=== PATIENT | female | born 1950 | race Caucasian/White ===

== ENCOUNTER 2017-10-07 14:33 | Emergency (ER) | payer OTHER, SELFPAY | END 2017-10-07 15:48 | disposition home or self-care (01) | LOC: ERS 14:33 | DX: J20.9 Acute bronchitis, unspecified (principal); I10 Essential (primary) hypertension; E11.9 Type 2 diabetes mellitus without complications | CPT/HCPCS: 87081; 87430; 99283 ==

== ENCOUNTER 2020-02-12 13:03 | Emergency (ER) | payer MEDICARE, SELFPAY ==
--- NOTE | 2020-02-12 13:34 | RAD ---
XR Chest 1 View Portable HISTORY: Dyspnea COMPARISON: 02/25/2011 FINDINGS: The heart size is normal. The lungs are well expanded without focal areas of consolidation, pneumothorax or pleural effusions. IMPRESSION: No radiographic evidence of acute cardiopulmonary process.
[2020-02-12 14:08] LABS: Bilirubin Negative (Negative); Blood, Urine Negative (Negative); Clarity Clear (Clear); Glucose, Urine (Dipstick) Greater than 1000 mg/dL (Negative); Ketone, Urine Trace mg/dL (Negative); Leukocyte Negative Leu/uL (Negative); Nitrite Negative (Negative); Protein, Urine (Dipstick) Negative (Neg-Trace); Specific Gravity, Urine 1.013 (1.002-1.036); Urobilinogen Normal mg/dL (Less than 2); pH, Urine 5.5 (5.0-9.0)
[2020-02-12 14:17] LABS: #Eosinphils 0.1 thou/uL (0.0-0.7); #Lymphocytes 2.2 thou/uL (1.20-3.40); #Monocytes 0.5 thou/uL (0.11-0.59); #Neutrophils 8.2 thou/uL (1.40-6.50); %Basophils 0.4 % (0.0-1.0); %Eosinophils 1.1 % (0.0-10.0); %Lymphocytes 19.8 % (21.0-51.0); %Monocytes 4.6 % (0.0-10.0); Mean Corpuscular HGB CONC 32.4 g/dL (32.0-36.0); Mean Corpuscular Hemoglobin 28.9 pg (27.0-31.0); Mean Corpuscular Volume 89.3 fL (78.0-98.0); Mean Platelet Volume 7.9 fL (7.4-10.4); Platelet Count 306 thou/uL (130-400); RBC Distribution Width 11.1 % (11.5-14.5); Red Blood Cell (RBC) Count 4.47 mill/uL (4.20-5.40)
[2020-02-12 14:30] LABS: Base Excess-Venous -0.1 mmol/L (-2.0 to 3.0); Bicarbonate (HCO3v) 26.3 mmol/L (22.0-28.0); CO2 Tension (PvCO2) 48.8 mmHg (40.0-50.0); Calcium, Ionized 1.15 mmol/L (See Comments:); Chloride 103 mmol/L (98-107); Hemoglobin - Calc 13.1 g/dL (12.0-16.0); Potassium 3.9 mmol/L (3.5-5.1); Sodium 143 mmol/L (138-145); T. Carbon Dioxide 27.8 mmol/L (22.0-28.0); vO2 Saturation-calc 68.9 % (60.0-85.0)
[2020-02-12 14:36] LABS: ALT (SGPT) 14 U/L (8-55); AST (SGOT) 10 U/L (5-34); Albumin 4.2 g/dL (3.4-4.8); Alkaline Phosphatase 92 U/L (40-110); Anion Gap 12 mmol/L (10-20); BUN (Urea Nitrogen) 12 mg/dL (9.8-20.1); Bilirubin, Total 0.7 mg/dL (0.2-1.2); Calc. Creatinine Clearance 0 mL/min (70-130); Carbon Dioxide 26 mmol/L (23-31); Chloride 105 mmol/L (98-107); Estimated GFR-MDRD 62; Globulin 2.8 g/dL (2.4-3.5); Glucose 338 mg/dL (80-115); Potassium 3.9 mmol/L (3.5-5.1); Sodium 139 mmol/L (136-145)
== END 2020-02-12 16:42 | disposition home or self-care (01) ==
LOC: ERS 13:03
DX: E11.65 Type 2 diabetes mellitus with hyperglycemia (principal); I10 Essential (primary) hypertension; Z79.4 Long term (current) use of insulin
CPT/HCPCS: 36415; 36416; 71045; 80053; 81003; 82010; 82330; 82803; 84484; 85025; 93005; 96360; 96361

== ENCOUNTER 2020-08-21 17:07 | Observation (INO) | payer MEDICARE, BC ==
[2020-08-21] MEDS ORDERED: Aspirin Chewable 81 MG TAB ONE (17:36)
[2020-08-21] MEDS ORDERED: Nitroglycerin 0.4 MG TAB 1 EACH ONE (17:36)
--- NOTE | 2020-08-21 17:38 | RAD ---
CHEST ONE VIEW: 08/21/20 INDICATION: Chest pain. COMPARISON: Prior exam dated 02/12/20. FINDINGS: The lungs are clear. Heart size is normal. No pleural effusion or pneumothorax evident. No acute osse ous abnormality is evident. IMPRESSION: No acute cardiopulmonary abnormality. POS: BH
[2020-08-21 17:49] LABS: Hemoglobin 12.2 g/dL (12.0-16.0); Mean Corpuscular HGB CONC 33.2 g/dL (32.0-36.0); Mean Corpuscular Volume 90.4 fL (78.0-98.0); Mean Platelet Volume 8.1 fL (7.4-10.4); Platelet Count 292 thou/uL (130-400); RBC Distribution Width 11.5 % (11.5-14.5); Red Blood Cell (RBC) Count 4.08 mill/uL (4.20-5.40); White Blood Cell (WBC) Count 12.1 thou/uL (4.8-10.8)
[2020-08-21 18:15] LABS: Lymphocytes 55 % (21-51); MDiff Complete? YES; Monocytes 6 % (0-10); Neutrophil 39 % (42-75); Platelet Morphology Comment Appears Adequate; RBC Morphology Normal
[2020-08-21 19:00] LABS: Albumin 4.2 g/dL (3.4-4.8)
[2020-08-21 19:01] LABS: Chloride 109 mmol/L (98-107); Potassium 3.5 mmol/L (3.5-5.1); Sodium 142 mmol/L (136-145)
[2020-08-21 19:02] LABS: Calcium 9.3 mg/dL (7.8-10.44)
[2020-08-21 19:03] LABS: Globulin 2.9 g/dL (2.4-3.5); Glucose 65 mg/dL (80-115); Protein, Total 7.1 g/dL (5.8-8.1)
[2020-08-21 19:04] LABS: Anion Gap 17 mmol/L (10-20); Bilirubin, Total 0.4 mg/dL (0.2-1.2); Carbon Dioxide 20 mmol/L (23-31)
[2020-08-21 19:05] LABS: Alkaline Phosphatase 70 U/L (40-110)
[2020-08-21 19:06] LABS: Calc. Creatinine Clearance 0 mL/min (70-130)
[2020-08-21 19:07] LABS: BUN (Urea Nitrogen) 15 mg/dL (9.8-20.1)
[2020-08-21 19:08] LABS: ALT (SGPT) 22 U/L (8-55); AST (SGOT) 17 U/L (5-34)
[2020-08-21 21:40] LABS: Troponin I Less than 0.010 ng/mL (< 0.028)
[2020-08-21] MEDS ORDERED: Ondansetron PF 4 MG/2 ML Vial IVP PRN (22:05)
[2020-08-21] MEDS ORDERED: Acetaminophen 325 MG TAB PO PRN (22:05)
[2020-08-21] MEDS ORDERED: Nitroglycerin 0.4 MG TAB (25 Tab Bottle) SL PRN (22:05)
--- NOTE | 2020-08-21 22:09 | PDOC.FPRHP ---
- History of Present Illness Chief Complaint: chest pain History of Present Illness: Pt is a 70 yo F with PMH of insulin dependent type 2 diabetic, HTN, MS s/p cath but no stent placement who present with chief complaint of chest pain. She states this chest pain started a couple of days ago and is associated with SOB. It feels like pressure in her chest and yesterday morning started to radiate to her back between her shoulder blades. She also has a mild VILLARREAL. The CP had been coming and going about every hour, unsure how long it lasts. She states the nitro she got in the ED relieved her pain and is no longer experiencing any pain. She has a history of heart attack in 2001 and this feeling she is having is similar to what she was experiencing then. In 2001, she underwent a cath with Dr Goel who said she had 25% occlusion but no stent was placed. Patient has not followed with a um nurse since that time. She also endorses a 1 mo history of SOB worse with exertion. She cannot lay flat. She denies fever, chi lls, vision changes, N/V, diarrhea, abdominal pain, jaw pain. She endorses compliance with her meds. ED Course: 2x nitro ASA 325mg EKG SR with no ST changes CXR negative Trop normal - Allergies/Adverse Reactions Allergies Allergy/AdvReac Type Severity Reaction Status Date / Time codeine Allergy Unverified 08/21/20 22:23 hydrocodone Allergy Unverified 08/21/20 22:23 morphine Allergy Unverified 08/21/20 22:23 - History PMHx: insulin dependent type 2 diabetic, HTN, MS PSHx: hysterectomy FHx: non contributory Social: smoked for 5-6 years 09/16 and quit in 1980 denies drugs or alcohol - Review of Systems General: denies: fever/chills, weight/appetite/sleep changes Eyes: denies: vision changes Respiratory: reports: shortness of breath, exercise intolerance. denies: cough Cardiovascular: reports: chest pain, orthopnea. denies: palpitation, edema Gastrointestinal: denies: nausea, vomiting, diarrhea, constipation, abdominal pain Genitourinary: denies: dysuria Skin: reports: lesions (patient has skin cancer on right side of neck). denies: rashes Neurological: denies: syncope, seizure, weakness Psychological: denies: anxiety, depression - Vital signs BP: 155/72 HR: 76 RR: 14 Tmax: 98.1 Pox: 99% on RA Wt: 86kg - Physical Exam Constitutional: NAD, awake, alert and oriented HEENT: normocephalic and atraumatic, EOMI, no scleral icterus Neck: supple, FROM Heart: RRR, normal S1/S2, no murmurs/rubs/gallops, pulses present, no edema Lungs: CTAB, no respiratory distress, good air movement, no wheezing Abdomen: soft, non-tender, bowel sounds present Musculoskeletal: normal structure, normal tone Neurological: no focal deficit -Skin: patient with 2cm lesion on right side of neck with central scab. Looks like it has pearly rolled borders suggestive of basal cell carcinoma. Psychiatric: normal mood and affect FMR H&P: Results - Labs Result Diagrams: 08/22/20 04:03 08/22/20 04:03 Lab results: WBC 12.1 thou/uL (4.8-10.8) H 08/21/20 17:26 Hgb 12.2 g/dL (12.0-16.0) 08/21/20 17:26 Hct 36.9 % (36.0-47.0) 08/21/20 17:26 MCV 90.4 fL (78.0-98.0) 08/21/20 17:26 Plt Count 292 thou/uL (130-400) 08/21/20 17:26 Sodium 142 mmol/L (136-145) 08/21/20 18:37 Potassium 3.5 mmol/L (3.5-5.1) 08/21/20 18:37 Chloride 109 mmol/L (98-107) H 08/21/20 18:37 Carbon Dioxide 20 mmol/L (23-31) L 08/21/20 18:37 BUN 15 mg/dL (9.8-20.1) 08/21/20 18:37 Creatinine 0.72 mg/dL (0.6-1.1) 08/21/20 18:37 Glucose 65 mg/dL (80-115) L 08/21/20 18:37 Calcium 9.3 mg/dL (7.8-10.44) 08/21/20 18:37 Total Bilirubin 0.4 mg/dL (0.2-1.2) 08/21/20 18:37 AST 17 U/L (5-34) 08/21/20 18:37 ALT 22 U/L (8-55) 08/21/20 18:37 Alkaline Phosphatase 70 U/L (40-110) 08/21/20 18:37 Serum Total Protein 7.1 g/dL (5.8-8.1) 08/21/20 18:37 Albumin 4.2 g/dL (3.4-4.8) 08/21/20 18:37 - EKG Interpretation EKG: NSR, no ST changes FMR H&P: A/P - Plan Chest pain ACS rule out -patient with past history of MS and symptoms suggestive of cardiac source -previous cath showed blockage of 25% as per patient report -EKG, CXR neg -trop neg in ED, will continue to trend -risk stratification labs pending -echo, stress pending given patient's symptoms and past history -Nitro PRN -continue home Atorvastatin Type 2 DM -insulin dependent -on Humulin 70/30 at home 25U qAM and qHS, hold while patient is NPO -adjust for patient being NPO by giving NPH 12U BID for basal coverage -SSI -continue home Metformin -A1c pending HTN -aware, on home Lisinopril -resume Dispo: admit to tele obs pending further cardiac workup Diet: NPO pending cardiac workup DVT ppx: lovenox Code: FULL PCP: Moises Attending: Rush FMR H&P: Upper Level - Plan Date/Time: 08/21/202208 IPramod DO, have evaluated this patient and agree with findings/plan as outlined by international trade teacher resident. Pertinent changes/additions are listed here. This is a 70 yo female with a PMH of HTN, HLD, CAD, IDDM2 who presents to the ER with a cc of chest pain. She state the pain started yesterday morning and has been ongoing. She states the pain is midaxillary on the left with radiation to her back between her shoulder blades. She describes the pain as a heaviness that reminds her of her last MS in 2002. She reports some SOB but denies nausea, vomiting, cough, diaphoresis, pain with deep breaths, or abdominal pain. She reports nothing at home made the pain better or worse, but she is currently pain free following the nitro. She admits that she does not see the doctor often but recently saw Dr. De Leon at [facility]. She does report a skin cancer on her right neck that was biopsied in September and she has been waiting to see a plastic surgeon to have it removed. Last A1c was this month and was 8.2. Objective: Vitals: 155/72, HR 76, RR 14, Temp 98.1, SpO2 99% RA, Wt 76kg. NAD, MMM, no JVD, heart was RRR with no murmurs, lungs CTAB, no reproducible pain, no abdominal pain, BS+, no swelling, pulses 2+ throughout. A/P ACS r/o Will trend troponins, first is negative. EKG is neg for acute MS, CXR WNL, Stress test in the AM barring no troponin elevation. CAD: continue home meds, IDDM2: Pt takes 70/30, will adjust for NPO after midnight. Further diabetic protocols per orders. See international trade teacher note for further information and management of chronic diseases. Code: Full Prophylaxis: none Family: None at bedside Fluids: SL Diet: NPO at midnight Disposition: DC in 1-2 days PCP: Dr. De Leon Addendum - Attending - Attending Attestation Date/Time: 08/22/20 1013 I personally evaluated the patient and discussed the management with Dr. Stewart and Susan on 08/21. I agree with the History, Examination, Assessment and Plan documented above with any addition or exceptions noted below. Patient seems to be describing symptoms more c/w with GERD. Will begin with a stress test tomorrow in light of age and atypical nature.
[2020-08-21 22:25] LABS: Hemoglobin A1c 7.6 % (4.0-6.0)
[2020-08-21] MEDS ORDERED: Dextrose 5% in Water 1,000 ML IV PRN (23:39)
[2020-08-21] MEDS ORDERED: Dextrose 50% Abboject 50 ML SYRINGE SLOW IVP PRN (23:39)
[2020-08-21] MEDS ORDERED: HumaLOG 300 UNITS/3 ML VIAL SC PRN ×2 (23:39)
[2020-08-21] MEDS ORDERED: Lactated Ringer's 1,000 ML IV SCH (23:45)
[2020-08-22 01:20] LABS: Troponin I Less than 0.010 ng/mL (< 0.028)
[2020-08-22 04:17] LABS: #Basophils 0.1 thou/uL (0.0-0.2); #Eosinphils 0.3 thou/uL (0.0-0.7); #Lymphocytes 3.8 thou/uL (1.20-3.40); #Monocytes 0.6 thou/uL (0.11-0.59); #Neutrophils 3.5 thou/uL (1.40-6.50); %Basophils 0.6 % (0.0-1.0); %Eosinophils 3.8 % (0.0-10.0); %Neutrophils 42.5 % (42.0-75.0); Hemoglobin 12.1 g/dL (12.0-16.0); Mean Corpuscular HGB CONC 32.4 g/dL (32.0-36.0); Mean Corpuscular Hemoglobin 29.2 pg (27.0-31.0); Mean Corpuscular Volume 90.2 fL (78.0-98.0); Mean Platelet Volume 7.9 fL (7.4-10.4); Platelet Count 275 thou/uL (130-400); RBC Distribution Width 11.5 % (11.5-14.5); Red Blood Cell (RBC) Count 4.14 mill/uL (4.20-5.40); White Blood Cell (WBC) Count 8.3 thou/uL (4.8-10.8)
[2020-08-22 04:45] LABS: ALT (SGPT) 19 U/L (8-55); AST (SGOT) 17 U/L (5-34); Alkaline Phosphatase 68 U/L (40-110); BUN (Urea Nitrogen) 11 mg/dL (9.8-20.1); Bilirubin, Total 0.8 mg/dL (0.2-1.2); Calc. Creatinine Clearance 0 mL/min (70-130); Calcium 9.2 mg/dL (7.8-10.44); Carbon Dioxide 25 mmol/L (23-31); Cardiac Risk 2.8 (Less than 4.5); Cholesterol 128 mg/dl (< 200 Desired); Globulin 2.9 g/dL (2.4-3.5); Glucose 86 mg/dL (80-115); HDL Cholesterol 45 mg/dL (>60 Neg Risk); LDL Cholesterol, Calculated 57 mg/dL; Protein, Total 6.9 g/dL (5.8-8.1); Triglycerides 132 mg/dL (Less than 150)
[2020-08-22 04:52] LABS: Anion Gap 16 mmol/L (10-20); Chloride 109 mmol/L (98-107); Potassium 3.6 mmol/L (3.5-5.1); Sodium 144 mmol/L (136-145)
--- NOTE | 2020-08-22 06:36 | PDOC.FM ---
- Subjective Subjective: Reports similar CP when walking to the bathroom. Pain was centered in the middle of her chest and radiated to her shoulder blades. The pain was relieved with nitro. She is not currently having chest pain. She continues to have VILLARREAL. Denies N/V, abdominal pain, SOB. - Objective MAR Reviewed: Yes Result Diagrams: 08/22/20 04:03 08/22/20 04:03 Phys Exam - Physical Examination Constitutional: NAD HEENT: moist MMs Neck: supple, full ROM Respiratory: no wheezing, clear to auscultation bilateral Cardiovascular: RRR Gastrointestinal: soft, non-tender, positive bowel sounds Musculoskeletal: no edema Neurological: non-focal Psychiatric: normal affect, A&O x 3 Skin: no rash Dx/Plan - Plan Plan: TypicalChest Pain -ACS rule out with past history of MA and symptoms suggestive of cardiac source -previous cath: per patient, blockage of 25%, no stent placed -EKG, CXR neg -trop: <0.010 x3 -LDL: 57, HDL: 45, Tri, Chol: 128 -echo, stress pending -Nitro PRN, continue home Atorvastatin Type 2 DM -insulin dependent, on Humulin 70/30 at home 25U qAM and qHS, hold while patient is NPO -while NPO: will give NPH 12U BID for basal coverage -SSI -continue home Metformin -A1c: 7.6 HTN -aware, on home Lisinopril -resume Dispo: Continue tele monitoring, Discharge pending results of stress test and echo Diet: NPO pending cardiac workup DVT ppx: lovenox Code: FULL PCP: Moises Attending: Rush Addmike - Attending - Attending Attestation Date/Time: 08/22/20 1030 I personally evaluated the patient and discussed the management with Dr. Hope. I agree with the History, Examination, Assessment and Plan documented above with any addition or exceptions noted below. Denied pain for me this AM. Await workup.
[2020-08-22 08:34] LABS: SARS-CoV-2 PCR by NAA Not Detected (NotDetected)
[2020-08-22] MEDS ORDERED: Enoxaparin Sodium 40 MG/0.4 ML SYRINGE ONE (08:52)
[2020-08-22] MEDS ORDERED: Lisinopril 10 MG TAB ONE (08:52)
[2020-08-22] MEDS ORDERED: NPH, Human Insulin Isophane 300 UNIT/3 ML VIAL SC SCH (09:00)
[2020-08-22] MEDS: Atorvastatin Calcium 20 MG TAB PO SCH ×2 (09:00→12:49)
[2020-08-22] MEDS: Lisinopril 5 MG TAB PO SCH ×2 (09:00→12:49)
[2020-08-22] MEDS: metFORMIN 500 MG TAB PO SCH ×2 (09:00→12:49)
[2020-08-22] MEDS: Enoxaparin Sodium 40 MG/0.4 ML SYRINGE SC SCH ×2 (09:00→12:49)
[2020-08-22] MEDS ORDERED: ADENOSINE 60 MG/20 ML VIAL ONE (10:00)
[2020-08-22 12:50] VITALS: BP 177/95
--- NOTE | 2020-08-22 13:08 | NM ---
EXAM: CARDIAC SPECT HISTORY: Chest pain. History of myocardial infarction TECHNIQUE: A myocardial perfusion scan was performed using the single isotope 1 day protocol with moshe hnetium 99m sestamibi. [10 mCi] was injected intravenously for the rest exam followed by 30 mCi for the stress study. Pharmacologic stress with adenosine was monitored and interpreted by the nurse practitioner. FINDINGS: Homogeneous tracer distribution is seen in the myocardial segments on stress and rest image s without fixed or reversible defects. Gated SPECT LVEF: 71% Wall motion exam: Normal IMPRESSION: Normal myocardial perfusion scan
--- NOTE | 2020-08-25 22:32 | DIS ---
DATE OF ADMISSION: 08/21/2020 DATE OF DISCHARGE: 08/22/2020 RESIDENT: Ritika Hope MD ADMITTING ATTENDING: Georgi Beverly MD DISCHARGE ATTENDING: Georgi Beverly MD CONSULTS: None. REPORT/IMAGES: 1. Chest x-ray, no acute cardiopulmonary abnormality. 2. Stress test nuclear medicine, normal myocardial perfusion scan. 3. Echocardiogram, EF of 55% to 60%, E-A flow reversal noted, suggestive of diastolic dysfunction. Left atrium mildly dilated. Mitral annular calcification present. Mild mitral regurg present. Mild tricuspid regurg. 4. Typical chest pain, secondary to gastroesophageal reflux disease. SECONDARY DIAGNOSES: 1. Type 2 diabetes. 2. Hypertension. 3. History of myocardial infarction. DISCHARGE MEDICATIONS: 1. Humulin 70/30. 2. Lisinopril 5 mg p.o. daily. 3. Atorvastatin 20 mg p.o. daily. 4. Metformin 1000 mg p.o. DISCONTINUED MEDICATIONS: None. HISTORY OF PRESENT ILLNESS/HOSPITAL COURSE: The patient is a 70-year-old female with past medical history of insulin-dependent diabetes, hypertension, NC status post catheterization, but no stent placement, who presented with chief complaint of chest pain. She reported that the pain started a couple of days ago and was associated with shortness of breath. She described the pain as a pressure in her chest and said that at one point, it radiated to her back between her shoulder blades. Due to the patient's history, she was admitted for ACS rule out. Her troponins were negative x3 during her stay, and her chest pain had resolved. The patient had a normal stress test and an echo, which revealed EF of 55% to 60%. The patient was continued on her home medications including 25 units q.a.m. and at bedtime of Humulin 70/30, lisinopril, and metformin. The patient's risk stratification labs revealed LDL of 57, HDL 45, triglycerides of 132, cholesterol 128, and the patient was continued on her home atorvastatin. DISPOSITION: Stable. DISCHARGE LOCATION: Home. DIET: Heart healthy, diabetic diet. ACTIVITY: As tolerated. FOLLOWUP: Follow up with PCP in 7 days. Job ID: [id number]
== END 2020-08-22 15:19 | disposition home or self-care (01) ==
LOC: ERS 17:07 → ERHOLD 19:57
PROVIDERS: ADMIT Emergency Medicine; ATTEND Emergency Medicine
DX: K21.9 Gastro-esophageal reflux disease without esophagitis (principal); E11.9 Type 2 diabetes mellitus without complications; I10 Essential (primary) hypertension; I25.2 Old myocardial infarction; I08.1 Rheumatic disorders of both mitral and tricuspid valves; I25.10 Atherosclerotic heart disease of native coronary artery without angina pectoris; Z79.4 Long term (current) use of insulin; Z79.899 Other long term (current) drug therapy; Z88.5 Allergy status to narcotic agent; Z87.891 Personal history of nicotine dependence
CPT/HCPCS: 71045; 78452; 80053; 80061; 83036; 84484 ×3; 85025; 93005; 93017; 93306; 94760; 99285; A9500; U0003; U0005; 36415; 84443; 87635; 96372; G0378; J0153; J1650

== ENCOUNTER 2023-05-07 08:48 | Outpatient (CLI) | payer MEDICARE, OTHER | END 2023-05-07 08:49 | disposition home or self-care (01) | LOC: BICMAMMO 08:48 | PROVIDERS: ATTEND Internal Medicine Hospice and Palliative Medicine | DX: N64.89 Other specified disorders of breast (principal) | CPT/HCPCS: 76642; 77065; G0279 ==

== ENCOUNTER 2023-12-13 09:59 | Day surgery (SDC) | payer OTHER, MEDICARE ==
[2023-12-12 11:51] VITALS: BMI 31.7
[2023-12-13] MEDS ORDERED: Lidocaine 1% PF 5 ML VIAL ONE (12:58)
[2023-12-13] MEDS ORDERED: PROPOFOL 20 ML ONE ×3 (12:58→13:25)
== END 2023-12-13 14:35 | disposition home or self-care (01) ==
LOC: SDC 09:59
PROVIDERS: ATTEND Internal Medicine Gastroenterology
DX: Z12.11 Encounter for screening for malignant neoplasm of colon (principal); R19.5 Other fecal abnormalities; D12.2 Benign neoplasm of ascending colon; D12.0 Benign neoplasm of cecum; K57.30 Diverticulosis of large intestine without perforation or abscess without bleeding; I10 Essential (primary) hypertension; E11.9 Type 2 diabetes mellitus without complications; I25.10 Atherosclerotic heart disease of native coronary artery without angina pectoris; I25.2 Old myocardial infarction; E78.5 Hyperlipidemia, unspecified; Z88.5 Allergy status to narcotic agent; Z87.891 Personal history of nicotine dependence; Z90.710 Acquired absence of both cervix and uterus; Z80.0 Family history of malignant neoplasm of digestive organs
CPT/HCPCS: 88305; J2704